=== PATIENT | male | born 1945 | race Caucasian/White ===

== ENCOUNTER 2017-01-14 18:17 | Emergency (ER) | payer MEDICARE, MEDICAID ==
[~2017-01-14] VITALS: Ht 193 cm; Wt 136.1 kg
[~2017-01-14 18:17] MED LIST: BUSP15TA60 PO; CARV25TA55 PO; GABA-339 PO; SPIR25TA89 PO; TRAZ100T2 PO; VENL75TA PO
[2017-01-14] MEDS ORDERED: LORazepam 0.5 MG TAB PO ONE (19:00)
[2017-01-14 19:25] LABS: Basophils # (auto) 0.1 uL; Eosinophils # (auto) 0.3 uL; Eosinophils % (auto) 2.7 % (0.0-7.0); Hematocrit 45.8 % (41.0-53.0); Hemoglobin 15.9 g/dL (13.5-17.5); Lymphocytes # (auto) 2.2 uL; Lymphocytes % (auto) 22.8 % (10.0-50.0); Mean Corpuscular Hemoglobin 34.8 pg (28.0-32.0); Mean Corpuscular Hgb Conc. 34.6 g/dL (32.0-36.0); Mean Corpuscular Volume 100.3 fL (80.0-100.0); Mean Platelet Volume 7.6 fL (6.9-10.8); Monocytes % (auto) 10.9 % (0.0-12.0); Neutrophils % (auto) 62.6 % (37.0-80.0); Nucleated Red Blood Cells % 0.1 %; Platelet Count (auto) 197 10^3/uL (140-450); Red Cell Distribution Width 16.9 % (11.8-14.3); White Blood Cell 9.6 10^3/uL (4.4-10.8)
[2017-01-14 19:44] LABS: Acetaminophen < 2.0 ug/mL (10-30)
[2017-01-14 19:47] LABS: Albumin 3.5 g/dL (3.4-5.0); BUN/Creatinine Ratio 6.2; Bilirubin, Total 0.7 mg/dL (0.2-1.0); Calcium 8.4 mg/dL (8.5-10.1); Potassium 4.1 mmol/L (3.5-5.1); Total Protein 9.1 g/dL (6.4-8.2)
[2017-01-15] MEDS ORDERED: THIAMINE INJ 100 MG, MULTIPLE VITAMIN 10 ML, FOLIC ACID 1 MG, MAGNESIUM SULF SDV 50% 8 ... IV ONE ×5 (00:45)
[2017-01-15] MEDS ORDERED: THIAMINE HCL 100 MG/ML 2ML VIAL ONE (01:21)
[2017-01-15] MEDS ORDERED: LORazepam 2MG/ML-1ML VIAL IV ONE (03:00)
[2017-01-15] MEDS ORDERED: KETOROLAC TROMETH 30 MG/ML 1ML VIAL IV ONE ×2 (03:00→11:30)
[2017-01-15] MEDS ORDERED: ONDANSETRON HCL 4 MG/2 ML VIAL IV ONE (03:00)
[2017-01-15] MEDS ORDERED: OLANZapine 5 MG TAB PO ONE (11:00)
[2017-01-15] MEDS ORDERED: ACETAMINOPHEN 325 MG TAB PO PRN (16:00)
[2017-01-15] MEDS ORDERED: LORazepam 0.5 MG TAB PO PRN (16:00)
[2017-01-15] MEDS ORDERED: ENALAPRIL MALEATE 2.5 MG TAB PO ONE (16:15)
[2017-01-15] MEDS ORDERED: SPIRONOLACTONE 25 MG TAB PO ONE (16:15)
[2017-01-15 17:00] VITALS: BP 136/62
[2017-01-15] MEDS ORDERED: GABAPENTIN 300 MG CAP PO SCH (22:00)
[2017-01-15] MEDS ORDERED: ATORVASTATIN 20 MG TAB PO SCH (22:00)
[2017-01-16] MEDS ORDERED: SPIRONOLACTONE 25 MG TAB PO SCH (10:00)
[2017-01-16] MEDS ORDERED: ENALAPRIL MALEATE 2.5 MG TAB PO SCH (10:00)
[2017-01-16] MEDS ORDERED: OLANZapine 5 MG TAB PO SCH (10:00)
== END 2017-01-15 17:36 | disposition short-term general hospital (02) ==
LOC: ER 18:17 → EDBD 18:17 → ER 01-15 17:36
DX: F32.9 Major depressive disorder, single episode, unspecified (principal); F41.9 Anxiety disorder, unspecified; G92 Toxic encephalopathy; F10.129 Alcohol abuse with intoxication, unspecified; F02.80 Dementia in other diseases classified elsewhere, unspecified severity, without behavioral disturbance, psychotic disturbance, mood disturbance, and anxiety; G30.9 Alzheimer's disease, unspecified; J44.9 Chronic obstructive pulmonary disease, unspecified; I25.10 Atherosclerotic heart disease of native coronary artery without angina pectoris; E11.9 Type 2 diabetes mellitus without complications
CPT/HCPCS: 36415; 80053; 80307; 80320; 80329; 85025; 93005; 96365; 96366; 96375; 96376; 99285; J1885; J2060; J2405; J3411; J3475; J7030

== ENCOUNTER 2019-07-04 12:45 | Inpatient (IN) | payer MEDICARE, MEDICAID ==
[~2019-07-04] VITALS: Ht 193 cm; Wt 123.6 kg
[~2019-07-04 12:45] MED LIST changes: +SPIR25TA8 PO; -SPIR25TA89 PO; -TRAZ100T2 PO; +TRAZ100T3 PO
[2019-07-04] MEDS ORDERED: SODIUM CHLORIDE 0.9% 1,000 ML IV ONE (13:30)
[2019-07-04 13:43] LABS: Basophils # (auto) 0.1 10 ^3/uL (0-0.2); Basophils % (auto) 0.4 % (0.0-2.0); Eosinophils # (auto) 0 10 ^3/uL (0-0.8); Eosinophils % (auto) 0.1 % (0.0-7.0); Hematocrit 42.4 % (41.0-53.0); Hemoglobin 14.3 g/dL (13.5-17.5); Lymphocytes # (auto) 0.9 10 ^3/uL (0.4-5.4); Mean Corpuscular Hemoglobin 31.6 pg (28.0-32.0); Mean Corpuscular Hgb Conc. 33.8 g/dL (32.0-36.0); Mean Corpuscular Volume 93.7 fL (80.0-100.0); Monocytes # (auto) 0.7 10 ^3/uL (0-1.3); Monocytes % (auto) 4.8 % (0.0-12.0); Neutrophils # (auto) 12.5 10 ^3/uL (1.6-8.6); Neutrophils % (auto) 88.7 % (37.0-80.0); Platelet Count (auto) 202 10^3/uL (140-450); Red Blood Cells 4.52 10^6/uL (4.5-5.90); Red Cell Distribution Width 13.6 % (11.8-14.3); White Blood Cell 14.2 10^3/uL (4.4-10.8)
[2019-07-04 14:00] LABS: Albumin 3.7 g/dL (3.4-5.0); Anion Gap 3 (5-15); Blood Urea Nitrogen 21 mg/dL (7-18); Calcium 8.3 mg/dL (8.5-10.1); Carbon Dioxide 20 mmol/L (21-32); Chloride 109 mmol/L (98-107); Glucose 179 mg/dL (74-106); INR 1.08 (0.9-1.15); Partial Thromboplastin Time 26.2 sec (23.64-32.05); Sodium 132 mmol/L (136-145)
[2019-07-04 14:07] LABS: Alanine Aminotransferase 28 U/L (16-61); Alkaline Phosphatase 81 U/L (45-117); Aspartate Aminotransferase 27 U/L (15-37); BUN/Creatinine Ratio 12.7; Bilirubin, Total 0.4 mg/dL (0.2-1.0); GFR African American 53 mL/min; GFR Non-African American 44 mL/min; Total Protein 8.3 g/dL (6.4-8.2)
[2019-07-04 14:16] LABS: Potassium 6.7 mmol/L (3.5-5.1)
[2019-07-04] MEDS ORDERED: SODIUM BICARBONATE 8.4 % INJ 50ML VIAL IV ONE ×2 (14:30→16:15)
[2019-07-04] MEDS ORDERED: CALCIUM CHL 100MG/ML 500 MG in D5W 5% 100 ML IV ONE (14:30)
[2019-07-04] MEDS ORDERED: ALBUTEROL SULF 2.5 MG/0.5ML(0.5%) NEB SOLN NEB ONE (14:30)
[2019-07-04] MEDS ORDERED: GLIP5TAB12 PO (14:35)
[2019-07-04] MEDS ORDERED: TRAZ100T3 PO (14:35)
[2019-07-04] MEDS ORDERED: FUROSEMIDE 20 MG/2 ML VIAL IV ONE (14:45)
[2019-07-04] MEDS ORDERED: SODIUM CHLORIDE 0.9% 500 ML IV ONE ×2 (14:45→16:45)
[2019-07-04] MEDS ORDERED: InsuLIN REG 1unit/0.01ml Soln (100units/ml) IV ONE (16:15)
[2019-07-04] MEDS ORDERED: DEXTROSE (50%) 50ML SYRG IV PRN (16:30)
[2019-07-04] MEDS ORDERED: levoFLOXacin 500MG 100 ML IV ONE (16:30)
[2019-07-04] MEDS ORDERED: ONDANSETRON HCL 4 MG/2 ML VIAL IV PRN (16:30)
[2019-07-04] MEDS ORDERED: NITROGLYCERIN 0.4 MG SL TAB SL PRN (16:30)
[2019-07-04] MEDS ORDERED: ACETAMINOPHEN 500 MG TAB PO PRN (16:30)
[2019-07-04] MEDS ORDERED: traMADol HCL 50 MG TAB PO PRN (16:30)
[2019-07-04] MEDS ORDERED: MORPHINE SULF INJ 2 MG/ML SYRINGE 1ML IV PRN (16:30)
[2019-07-04] MEDS ORDERED: LACTULOSE 20Gm/30ML SOLN PO PRN (16:30)
[2019-07-04] MEDS: InsuLIN REG 1unit/0.01ml Soln (100units/ml) SC SCH ×2 (17:00→23:35)
[2019-07-04] MEDS: ACCU-CHEK COMFORT CURVE STRIP VI SCH ×2 (17:00→23:35)
[2019-07-04 18:03] LABS: Amylase 66 U/L (25-115); CRP High Sensitivity 0.72 mg/dL (< 0.3); Lipase 131 U/L (73-393)
[2019-07-04 18:04] LABS: BUN/Creatinine Ratio 13.2; Calcium 8.1 mg/dL (8.5-10.1); Potassium 4.2 mmol/L (3.5-5.1)
[2019-07-04 19:06] VITALS: BP 96/48
[2019-07-04] MEDS: SODIUM CHLORIDE 0.9% 1,000 ML IV SCH (20:00)
[2019-07-04] MEDS ORDERED: HALOPERIDOL LACTATE 5 MG/ML INJ VIAL IV PRN (22:15)
[2019-07-04] MEDS: metroNIDAZOLE 500MG/100ML 100 ML IV SCH (22:18)
[2019-07-05] MEDS ORDERED: LORazepam 2MG/ML-1ML VIAL IV ONE
[2019-07-05 03:13] LABS: Basophils # (auto) 0 10 ^3/uL (0-0.2); Basophils % (auto) 0.2 % (0.0-2.0); Eosinophils # (auto) 0 10 ^3/uL (0-0.8); Hematocrit 38.2 % (41.0-53.0); Lymphocytes # (auto) 1.1 10 ^3/uL (0.4-5.4); Lymphocytes % (auto) 7.4 % (10.0-50.0); Mean Corpuscular Hemoglobin 31.6 pg (28.0-32.0); Mean Corpuscular Hgb Conc. 34.1 g/dL (32.0-36.0); Mean Corpuscular Volume 92.6 fL (80.0-100.0); Monocytes # (auto) 1.4 10 ^3/uL (0-1.3); Monocytes % (auto) 9.4 % (0.0-12.0); Neutrophils # (auto) 12.8 10 ^3/uL (1.6-8.6); Nucleated Red Blood Cells % 0.1 %; Platelet Count (auto) 183 10^3/uL (140-450); Red Blood Cells 4.13 10^6/uL (4.5-5.90); Red Cell Distribution Width 14.1 % (11.8-14.3); White Blood Cell 15.4 10^3/uL (4.4-10.8)
[2019-07-05 03:33] LABS: Albumin 3.1 g/dL (3.4-5.0); Calcium 7.8 mg/dL (8.5-10.1); Potassium 4.4 mmol/L (3.5-5.1)
[2019-07-05 03:36] LABS: BUN/Creatinine Ratio 14.4; Bilirubin, Total 0.4 mg/dL (0.2-1.0); Total Protein 7.2 g/dL (6.4-8.2)
[2019-07-05] MEDS: metroNIDAZOLE 500MG/100ML 100 ML IV SCH ×3 (05:34→22:00)
[2019-07-05] MEDS: ACCU-CHEK COMFORT CURVE STRIP VI SCH ×4 (05:41→22:00)
[2019-07-05] MEDS: InsuLIN REG 1unit/0.01ml Soln (100units/ml) SC SCH ×4 (05:41→22:00)
[2019-07-05] MEDS: SODIUM CHLORIDE 0.9% 1,000 ML IV SCH ×2 (07:56→19:10)
[2019-07-05 09:10] LABS: Urine Bacteria NONE SEEN /hpf (None Seen); Urine Blood Negative /uL (Negative); Urine Specific Gravity 1.021 (1.001-1.035); Urine WBC 9 /hpf (0 - 3)
[2019-07-05 09:19] LABS: Alcohol, Urine < 3.0 mg/dL (0-5); Amphetamine Screen, Urine NEGATIVE (NEGATIVE); Barbiturate Scree,Urine NEGATIVE (NEGATIVE); Benzodiazephine Screen, Urine NEGATIVE (NEGATIVE); Cannabinoid Screen, Urine NEGATIVE (NEGATIVE); Cocaine Screen, Urine NEGATIVE (NEGATIVE); Opiate Scree,Urine NEGATIVE (NEGATIVE); Phencyclidine Screen, Urine NEGATIVE (NEGATIVE)
[2019-07-05] MEDS ORDERED: levoFLOXacin 500MG 100 ML IV SCH (10:00)
[2019-07-05] MEDS: PANTOPRAZOLE 40 MG TAB PO SCH (10:00)
[2019-07-05] MEDS ORDERED: levoFLOXacin 250MG 50 ML IV SCH (10:00)
[2019-07-05] MEDS: ENOXAPARIN SOD 40 MG/0.4 ML SYRINGE SC SCH (10:28)
[2019-07-05] MEDS ORDERED: HALOPERIDOL LACTATE 5 MG/ML INJ VIAL ONE (13:10)
[2019-07-05] MEDS ORDERED: HALOPERIDOL LACTATE 5 MG/ML INJ VIAL IM ONE ×2 (13:15)
[2019-07-05] MEDS ORDERED: ACETAMINOPHEN 650 MG RECT SUPP PR ONE (13:30)
[2019-07-05] MEDS ORDERED: LORazepam 2MG/ML-1ML VIAL IV PRN (21:30)
[2019-07-06] MEDS: metroNIDAZOLE 500MG/100ML 100 ML IV SCH ×3 (06:00→22:00)
[2019-07-06] MEDS: ACCU-CHEK COMFORT CURVE STRIP VI SCH ×4 (06:46→22:00)
[2019-07-06] MEDS: InsuLIN REG 1unit/0.01ml Soln (100units/ml) SC SCH ×4 (06:46→22:00)
[2019-07-06 06:57] LABS: Basophils # (auto) 0 10 ^3/uL (0-0.2); Basophils % (auto) 0.3 % (0.0-2.0); Eosinophils # (auto) 0 10 ^3/uL (0-0.8); Eosinophils % (auto) 0.1 % (0.0-7.0); Hematocrit 38.5 % (41.0-53.0); Hemoglobin 13.1 g/dL (13.5-17.5); Lymphocytes # (auto) 0.9 10 ^3/uL (0.4-5.4); Lymphocytes % (auto) 6.5 % (10.0-50.0); Mean Corpuscular Hemoglobin 31.6 pg (28.0-32.0); Mean Corpuscular Volume 93.1 fL (80.0-100.0); Monocytes # (auto) 1.5 10 ^3/uL (0-1.3); Monocytes % (auto) 11.4 % (0.0-12.0); Neutrophils # (auto) 10.8 10 ^3/uL (1.6-8.6); Neutrophils % (auto) 81.7 % (37.0-80.0); Platelet Count (auto) 181 10^3/uL (140-450); Red Blood Cells 4.13 10^6/uL (4.5-5.90); Red Cell Distribution Width 14.3 % (11.8-14.3); White Blood Cell 13.2 10^3/uL (4.4-10.8)
[2019-07-06 07:15] LABS: BUN/Creatinine Ratio 19.6; Calcium 7.5 mg/dL (8.5-10.1); Potassium 3.6 mmol/L (3.5-5.1)
[2019-07-06 07:20] VITALS: BP 123/70
[2019-07-06] MEDS ORDERED: SOD CHL 0.45% 1,000 ML IV SCH (08:45)
[2019-07-06] MEDS: cefTRIAXone 1GM/50ML D5W 50 ML IV SCH ×2 (09:43→21:00)
[2019-07-06] MEDS: PANTOPRAZOLE 40 MG TAB PO SCH (09:43)
[2019-07-06] MEDS: ENOXAPARIN SOD 40 MG/0.4 ML SYRINGE SC SCH (09:43)
[2019-07-06] MEDS ORDERED: SOD CHL 0.45% 1,000 ML IV ONE (11:45)
[2019-07-06] MEDS ORDERED: ENOXAPARIN SOD 100 MG/1 ML SYRINGE SC ONE (11:45)
[2019-07-06] MEDS ORDERED: DOXYCYCLINE 100MG/250ML 250 ML IV ONE (12:00)
[2019-07-06] MEDS ORDERED: FUROSEMIDE 20 MG/2 ML VIAL IV ONE (12:00)
[2019-07-06 13:11] VITALS: BP 109/65
[2019-07-06] MEDS ORDERED: THIAMINE 100mg/ml INJ (200mg/2ml VIAL) IV SCH (13:15)
[2019-07-06] MEDS ORDERED: ACETAMINOPHEN 650 MG RECT SUPP PR ONE (13:15)
[2019-07-06] MEDS ORDERED: LORazepam 2MG/ML-1ML VIAL IV ONE (13:15)
[2019-07-06] MEDS: THIAMINE HCL 100 MG TAB PO SCH (14:16)
[2019-07-06 15:59] LABS: Urine Bacteria FEW /hpf (None Seen); Urine Blood 2+ /uL (Negative); Urine Mucus FEW (None Seen); Urine Specific Gravity 1.011 (1.001-1.035); Urine WBC 22 /hpf (0 - 3)
[2019-07-06] MEDS ORDERED: D5W/SOD CHL 0.45% 1,000 ML IV SCH ×2 (19:30)
[2019-07-06 23:00] VITALS: BP 117/57
[2019-07-06 23:15] VITALS: BP 122/54
[2019-07-06 23:30] VITALS: BP 116/44
[2019-07-06 23:45] VITALS: BP 110/51
[2019-07-07] VITALS (31 sets, daily range): BP systolic 104–161; BP diastolic 44–73
[2019-07-07 03:54] LABS: Basophils # (auto) 0 10 ^3/uL (0-0.2); Basophils % (auto) 0.1 % (0.0-2.0); Eosinophils # (auto) 0 10 ^3/uL (0-0.8); Eosinophils % (auto) 0.1 % (0.0-7.0); Hematocrit 38.7 % (41.0-53.0); Hemoglobin 13.2 g/dL (13.5-17.5); Lymphocytes # (auto) 1.2 10 ^3/uL (0.4-5.4); Lymphocytes % (auto) 10.7 % (10.0-50.0); Mean Corpuscular Hemoglobin 31.6 pg (28.0-32.0); Mean Corpuscular Hgb Conc. 34.1 g/dL (32.0-36.0); Mean Corpuscular Volume 92.8 fL (80.0-100.0); Monocytes # (auto) 1.5 10 ^3/uL (0-1.3); Monocytes % (auto) 13.4 % (0.0-12.0); Neutrophils # (auto) 8.6 10 ^3/uL (1.6-8.6); Neutrophils % (auto) 75.7 % (37.0-80.0); Platelet Count (auto) 186 10^3/uL (140-450); Red Blood Cells 4.17 10^6/uL (4.5-5.90); Red Cell Distribution Width 14.4 % (11.8-14.3); White Blood Cell 11.3 10^3/uL (4.4-10.8)
[2019-07-07 04:14] LABS: Calcium 7.7 mg/dL (8.5-10.1)
[2019-07-07 04:17] LABS: BUN/Creatinine Ratio 20.6
[2019-07-07] MEDS: D5W 5% 1,000 ML IV SCH (08:49)
[2019-07-07] MEDS: POTASSIUM CHL 20MEQ/100ML 100 ML IV SCH ×3 (08:49→14:12)
[2019-07-07] MEDS: PANTOPRAZOLE 40 MG TAB PO SCH (09:19)
[2019-07-07] MEDS: cefTRIAXone 1GM/50ML D5W 50 ML IV SCH ×2 (09:19→22:40)
[2019-07-07] MEDS: THIAMINE HCL 100 MG TAB PO SCH (09:19)
[2019-07-07] MEDS ORDERED: THIAMINE 100mg/ml INJ (200mg/2ml VIAL) IV SCH (10:00)
[2019-07-07] MEDS: ENOXAPARIN SOD 40 MG/0.4 ML SYRINGE SC SCH (10:49)
[2019-07-07] MEDS: InsuLIN REG 1unit/0.01ml Soln (100units/ml) SC SCH ×3 (11:30→22:00)
[2019-07-07] MEDS: DOXYCYCLINE 100MG/250ML 250 ML IV SCH ×3 (12:02→23:28)
[2019-07-07] MEDS: ACCU-CHEK COMFORT CURVE STRIP VI SCH ×3 (14:10→22:40)
[2019-07-07] MEDS: metroNIDAZOLE 500MG/100ML 100 ML IV SCH ×2 (15:00→22:40)
[2019-07-07 16:52] LABS: BUN/Creatinine Ratio 21.1; Calcium 7.9 mg/dL (8.5-10.1); Potassium 3.4 mmol/L (3.5-5.1)
[2019-07-08] VITALS: BP 146/69
[2019-07-08] MEDS: LORazepam 2MG/ML-1ML VIAL IV PRN ×2 (00:27→09:45)
[2019-07-08] MEDS: ACETAMINOPHEN 650 MG RECT SUPP PR PRN (00:27)
[2019-07-08] MEDS: D5W 5% 1,000 ML IV SCH ×2 (03:30→12:36)
[2019-07-08 04:00] VITALS: BP 130/64
[2019-07-08] MEDS: metroNIDAZOLE 500MG/100ML 100 ML IV SCH ×3 (06:19→21:51)
[2019-07-08] MEDS: ACCU-CHEK COMFORT CURVE STRIP VI SCH ×4 (06:19→21:51)
[2019-07-08] MEDS: InsuLIN REG 1unit/0.01ml Soln (100units/ml) SC SCH ×4 (06:19→21:51)
[2019-07-08 06:49] LABS: Basophils # (auto) 0 10 ^3/uL (0-0.2); Basophils % (auto) 0.2 % (0.0-2.0); Eosinophils # (auto) 0.1 10 ^3/uL (0-0.8); Eosinophils % (auto) 0.5 % (0.0-7.0); Hemoglobin 14.1 g/dL (13.5-17.5); Lymphocytes # (auto) 1.2 10 ^3/uL (0.4-5.4); Lymphocytes % (auto) 11.3 % (10.0-50.0); Mean Corpuscular Hemoglobin 31.9 pg (28.0-32.0); Mean Corpuscular Hgb Conc. 32.9 g/dL (32.0-36.0); Mean Corpuscular Volume 97.2 fL (80.0-100.0); Monocytes # (auto) 1.5 10 ^3/uL (0-1.3); Monocytes % (auto) 14.2 % (0.0-12.0); Neutrophils # (auto) 7.6 10 ^3/uL (1.6-8.6); Neutrophils % (auto) 73.8 % (37.0-80.0); Nucleated Red Blood Cells % 0.1 %; Platelet Count (auto) 165 10^3/uL (140-450); Red Blood Cells 4.42 10^6/uL (4.5-5.90); Red Cell Distribution Width 15.1 % (11.8-14.3); White Blood Cell 10.2 10^3/uL (4.4-10.8)
[2019-07-08 07:00] LABS: BUN/Creatinine Ratio 19.4; Calcium 8.3 mg/dL (8.5-10.1); Potassium 3.5 mmol/L (3.5-5.1)
[2019-07-08] MEDS: ALBUTEROL SULF 2.5 MG/0.5ML(0.5%) NEB SOLN NEB PRN ×2 (07:36→15:04)
[2019-07-08 08:00] VITALS: BP 149/68
[2019-07-08] MEDS: cefTRIAXone 1GM/50ML D5W 50 ML IV SCH ×2 (08:30→21:23)
[2019-07-08] MEDS: THIAMINE HCL 100 MG TAB PO SCH (09:55)
[2019-07-08] MEDS: PANTOPRAZOLE 40 MG TAB PO SCH (09:55)
[2019-07-08] MEDS: ENOXAPARIN SOD 40 MG/0.4 ML SYRINGE SC SCH (10:00)
[2019-07-08 12:00] VITALS: BP 137/67
[2019-07-08] MEDS ORDERED: methylPREDNISolone SOD SUCC 40 MG/ML VL IV ONE (12:30)
[2019-07-08] MEDS: DOXYCYCLINE 100MG/250ML 250 ML IV SCH (12:36)
[2019-07-08] MEDS ORDERED: PANTOPRAZOLE 40 MG/10 ML VIAL INJ IV ONE (12:45)
[2019-07-08] MEDS: LORazepam 2MG/ML-1ML VIAL IV SCH ×2 (14:09→21:50)
[2019-07-08 16:00] VITALS: BP 143/74
[2019-07-08] MEDS ORDERED: FUROSEMIDE 20 MG/2 ML VIAL IV ONE (18:15)
[2019-07-08 20:00] VITALS: BP 127/73
[2019-07-08] MEDS: methylPREDNISolone SOD SUCC 40 MG/ML VL IV SCH (21:51)
[2019-07-08] MEDS: BACITRACIN TOP OINT 1 UD PKG TOP SCH (21:52)
[2019-07-08] MEDS ORDERED: LORazepam 2MG/ML-1ML VIAL IV SCH (22:00)
[2019-07-09] VITALS: BP 163/77
[2019-07-09] MEDS: HALOPERIDOL LACTATE 5 MG/ML INJ VIAL IM PRN ×2 (01:00→09:53)
[2019-07-09] MEDS: DOXYCYCLINE 100MG/250ML 250 ML IV SCH ×3 (01:39→23:52)
[2019-07-09] MEDS: D5W 5% 1,000 ML IV SCH ×2 (01:39→16:45)
[2019-07-09 03:38] LABS: Basophils # (auto) 0 10 ^3/uL (0-0.2); Basophils % (auto) 0.2 % (0.0-2.0); Eosinophils # (auto) 0 10 ^3/uL (0-0.8); Hematocrit 40.4 % (41.0-53.0); Hemoglobin 13.7 g/dL (13.5-17.5); Lymphocytes # (auto) 0.4 10 ^3/uL (0.4-5.4); Lymphocytes % (auto) 4.7 % (10.0-50.0); Mean Corpuscular Hemoglobin 31.5 pg (28.0-32.0); Mean Corpuscular Volume 92.8 fL (80.0-100.0); Monocytes # (auto) 0.2 10 ^3/uL (0-1.3); Monocytes % (auto) 2.6 % (0.0-12.0); Neutrophils # (auto) 8.7 10 ^3/uL (1.6-8.6); Neutrophils % (auto) 92.5 % (37.0-80.0); Platelet Count (auto) 177 10^3/uL (140-450); Red Blood Cells 4.35 10^6/uL (4.5-5.90); Red Cell Distribution Width 14.2 % (11.8-14.3); White Blood Cell 9.4 10^3/uL (4.4-10.8)
[2019-07-09 03:48] VITALS: BP 153/70
[2019-07-09 03:59] LABS: Calcium 8.1 mg/dL (8.5-10.1); Potassium 3.3 mmol/L (3.5-5.1)
[2019-07-09] MEDS: metroNIDAZOLE 500MG/100ML 100 ML IV SCH ×3 (05:25→22:46)
[2019-07-09] MEDS: ACCU-CHEK COMFORT CURVE STRIP VI SCH ×4 (05:26→23:52)
[2019-07-09] MEDS: InsuLIN REG 1unit/0.01ml Soln (100units/ml) SC SCH ×4 (05:28→23:59)
[2019-07-09] MEDS: LORazepam 2MG/ML-1ML VIAL IV SCH ×3 (05:36→21:51)
[2019-07-09] MEDS ORDERED: FUROSEMIDE 20 MG/2 ML VIAL IV SCH (06:00)
[2019-07-09] MEDS: cefTRIAXone 1GM/50ML D5W 50 ML IV SCH ×2 (09:52→21:51)
[2019-07-09] MEDS: METOPROLOL TARTRATE 25 MG TAB PO SCH ×2 (10:00→22:05)
[2019-07-09] MEDS ORDERED: POTASSIUM CHLORIDE 20 MEQ, LIDOCAINE 1% (LOCAL ANESTH.) 2 ML in SODIUM CHL 0.9% 100 ML IV ONE (10:00)
[2019-07-09] MEDS: THIAMINE HCL 100 MG TAB PO SCH (10:00)
[2019-07-09] MEDS: ENOXAPARIN SOD 40 MG/0.4 ML SYRINGE SC SCH (10:30)
[2019-07-09] MEDS: BACITRACIN TOP OINT 1 UD PKG TOP SCH ×2 (10:30→22:00)
[2019-07-09] MEDS: PANTOPRAZOLE 40 MG/10 ML VIAL INJ IV SCH (10:30)
[2019-07-09] MEDS: methylPREDNISolone SOD SUCC 40 MG/ML VL IV SCH ×2 (10:30→21:51)
[2019-07-09 11:40] VITALS: BP 160/63
[2019-07-09 16:05] VITALS: BP 119/78
[2019-07-09] MEDS: ACETAMINOPHEN 650 MG RECT SUPP PR PRN (16:56)
[2019-07-09 22:00] VITALS: BP 150/81
[2019-07-10] MEDS: D5W 5% 1,000 ML IV SCH ×3 (02:45→22:53)
[2019-07-10 05:00] VITALS: BP 157/79
[2019-07-10 05:19] LABS: Basophils # (auto) 0.1 10 ^3/uL (0-0.2); Basophils % (auto) 0.6 % (0.0-2.0); Eosinophils # (auto) 0 10 ^3/uL (0-0.8); Hematocrit 44.7 % (41.0-53.0); Hemoglobin 15.1 g/dL (13.5-17.5); Lymphocytes # (auto) 0.8 10 ^3/uL (0.4-5.4); Lymphocytes % (auto) 4.8 % (10.0-50.0); Mean Corpuscular Hemoglobin 31.3 pg (28.0-32.0); Mean Corpuscular Hgb Conc. 33.9 g/dL (32.0-36.0); Mean Corpuscular Volume 92.5 fL (80.0-100.0); Monocytes # (auto) 0.9 10 ^3/uL (0-1.3); Monocytes % (auto) 4.9 % (0.0-12.0); Neutrophils # (auto) 15.7 10 ^3/uL (1.6-8.6); Neutrophils % (auto) 89.7 % (37.0-80.0); Nucleated Red Blood Cells % 0.2 %; Platelet Count (auto) 165 10^3/uL (140-450); Red Blood Cells 4.83 10^6/uL (4.5-5.90); White Blood Cell 17.5 10^3/uL (4.4-10.8)
[2019-07-10 05:36] LABS: Potassium 3.5 mmol/L (3.5-5.1)
[2019-07-10 05:41] LABS: BUN/Creatinine Ratio 26.7; Calcium 8.4 mg/dL (8.5-10.1)
[2019-07-10] MEDS: LORazepam 2MG/ML-1ML VIAL IV SCH ×3 (06:00→22:06)
[2019-07-10] MEDS: metroNIDAZOLE 500MG/100ML 100 ML IV SCH ×3 (06:19→22:06)
[2019-07-10] MEDS: InsuLIN REG 1unit/0.01ml Soln (100units/ml) SC SCH ×4 (07:12→22:08)
[2019-07-10] MEDS: ACCU-CHEK COMFORT CURVE STRIP VI SCH ×4 (07:12→22:09)
[2019-07-10 08:44] VITALS: BP 154/90
[2019-07-10] MEDS: BACITRACIN TOP OINT 1 UD PKG TOP SCH ×2 (11:16→22:09)
[2019-07-10] MEDS: ENOXAPARIN SOD 40 MG/0.4 ML SYRINGE SC SCH (11:18)
[2019-07-10] MEDS: THIAMINE HCL 100 MG TAB PO SCH (11:19)
[2019-07-10] MEDS: METOPROLOL TARTRATE 25 MG TAB PO SCH ×2 (11:20→22:08)
[2019-07-10] MEDS: cefTRIAXone 1GM/50ML D5W 50 ML IV SCH ×2 (11:22→20:44)
[2019-07-10] MEDS: PANTOPRAZOLE 40 MG/10 ML VIAL INJ IV SCH (12:02)
[2019-07-10] MEDS: methylPREDNISolone SOD SUCC 40 MG/ML VL IV SCH ×2 (12:03→22:06)
[2019-07-10] MEDS: DOXYCYCLINE 100MG/250ML 250 ML IV SCH (12:03)
[2019-07-10 13:00] VITALS: BP 137/78
[2019-07-10 17:27] VITALS: BP 142/87
[2019-07-10 19:49] VITALS: BP 142/87
[2019-07-10 21:55] VITALS: BP 132/73
[2019-07-11] MEDS: DOXYCYCLINE 100MG/250ML 250 ML IV SCH ×2 (00:13→12:00)
[2019-07-11 04:50] VITALS: BP 117/81
[2019-07-11] MEDS: LORazepam 2MG/ML-1ML VIAL IV SCH ×3 (05:33→22:10)
[2019-07-11] MEDS: metroNIDAZOLE 500MG/100ML 100 ML IV SCH ×3 (05:34→22:11)
[2019-07-11] MEDS: ACCU-CHEK COMFORT CURVE STRIP VI SCH ×4 (05:58→22:12)
[2019-07-11] MEDS: InsuLIN REG 1unit/0.01ml Soln (100units/ml) SC SCH ×4 (06:01→22:12)
[2019-07-11 07:33] LABS: Basophils # (auto) 0 10 ^3/uL (0-0.2); Basophils % (auto) 0.1 % (0.0-2.0); Eosinophils # (auto) 0 10 ^3/uL (0-0.8); Hematocrit 41.7 % (41.0-53.0); Hemoglobin 13.7 g/dL (13.5-17.5); Lymphocytes # (auto) 0.9 10 ^3/uL (0.4-5.4); Lymphocytes % (auto) 5.5 % (10.0-50.0); Mean Corpuscular Hemoglobin 31.5 pg (28.0-32.0); Mean Corpuscular Hgb Conc. 32.9 g/dL (32.0-36.0); Mean Corpuscular Volume 95.9 fL (80.0-100.0); Monocytes % (auto) 6.4 % (0.0-12.0); Neutrophils # (auto) 13.6 10 ^3/uL (1.6-8.6); Nucleated Red Blood Cells % 0.1 %; Platelet Count (auto) 161 10^3/uL (140-450); Red Blood Cells 4.35 10^6/uL (4.5-5.90); Red Cell Distribution Width 14.8 % (11.8-14.3); White Blood Cell 15.5 10^3/uL (4.4-10.8)
[2019-07-11 07:43] LABS: BUN/Creatinine Ratio 30.8; Calcium 8.1 mg/dL (8.5-10.1); Potassium 3.7 mmol/L (3.5-5.1)
[2019-07-11 09:00] VITALS: BP 137/68
[2019-07-11] MEDS: BACITRACIN TOP OINT 1 UD PKG TOP SCH ×2 (09:47→22:11)
[2019-07-11] MEDS: cefTRIAXone 1GM/50ML D5W 50 ML IV SCH ×2 (09:47→20:53)
[2019-07-11] MEDS: THIAMINE HCL 100 MG TAB PO SCH (09:47)
[2019-07-11] MEDS: methylPREDNISolone SOD SUCC 40 MG/ML VL IV SCH ×2 (09:48→22:11)
[2019-07-11] MEDS: ENOXAPARIN SOD 40 MG/0.4 ML SYRINGE SC SCH (09:48)
[2019-07-11] MEDS: METOPROLOL TARTRATE 25 MG TAB PO SCH ×2 (09:48→22:11)
[2019-07-11] MEDS: D5W 5% 1,000 ML IV SCH ×2 (09:48→17:48)
[2019-07-11] MEDS: PANTOPRAZOLE 40 MG/10 ML VIAL INJ IV SCH (09:48)
[2019-07-11 13:00] VITALS: BP 143/78
[2019-07-11 21:12] VITALS: BP 119/74
[2019-07-12] MEDS: DOXYCYCLINE 100MG/250ML 250 ML IV SCH ×2 (00:40→11:46)
[2019-07-12 05:24] VITALS: BP 142/73
[2019-07-12] MEDS: D5W 5% 1,000 ML IV SCH ×2 (05:40→14:45)
[2019-07-12] MEDS: LORazepam 2MG/ML-1ML VIAL IV SCH ×3 (05:40→21:49)
[2019-07-12] MEDS: metroNIDAZOLE 500MG/100ML 100 ML IV SCH ×3 (05:40→21:48)
[2019-07-12] MEDS: ACCU-CHEK COMFORT CURVE STRIP VI SCH ×4 (06:01→21:51)
[2019-07-12] MEDS: InsuLIN REG 1unit/0.01ml Soln (100units/ml) SC SCH ×4 (06:03→22:09)
[2019-07-12 08:30] VITALS: BP 149/72
[2019-07-12] MEDS: ENOXAPARIN SOD 40 MG/0.4 ML SYRINGE SC SCH (10:23)
[2019-07-12] MEDS: PANTOPRAZOLE 40 MG/10 ML VIAL INJ IV SCH (10:23)
[2019-07-12] MEDS: methylPREDNISolone SOD SUCC 40 MG/ML VL IV SCH (10:23)
[2019-07-12] MEDS: cefTRIAXone 1GM/50ML D5W 50 ML IV SCH ×2 (10:24→20:56)
[2019-07-12] MEDS: METOPROLOL TARTRATE 25 MG TAB PO SCH ×2 (10:24→21:49)
[2019-07-12] MEDS: THIAMINE HCL 100 MG TAB PO SCH (10:24)
[2019-07-12] MEDS: BACITRACIN TOP OINT 1 UD PKG TOP SCH ×2 (10:25→21:50)
[2019-07-12 13:30] VITALS: BP 135/68
[2019-07-12 16:57] VITALS: BP 165/86
[2019-07-12 17:18] VITALS: BP 165/86
[2019-07-12] MEDS: DOXYCYCLINE 100 MG TAB/CAP PO SCH (21:50)
[2019-07-12 22:44] VITALS: BP 139/74
[2019-07-13] MEDS: D5W 5% 1,000 ML IV SCH ×2 (00:45→11:54)
[2019-07-13 04:44] VITALS: BP 148/93
[2019-07-13] MEDS: LORazepam 2MG/ML-1ML VIAL IV SCH ×3 (06:00→22:00)
[2019-07-13] MEDS: metroNIDAZOLE 500MG/100ML 100 ML IV SCH (06:11)
[2019-07-13] MEDS: ACCU-CHEK COMFORT CURVE STRIP VI SCH ×4 (06:12→22:35)
[2019-07-13] MEDS: InsuLIN REG 1unit/0.01ml Soln (100units/ml) SC SCH ×4 (06:12→22:00)
[2019-07-13] MEDS: HALOPERIDOL LACTATE 5 MG/ML INJ VIAL IM PRN (08:29)
[2019-07-13 09:00] VITALS: BP 112/59
[2019-07-13] MEDS: cefTRIAXone 1GM/50ML D5W 50 ML IV SCH ×2 (09:00→22:33)
[2019-07-13] MEDS: PANTOPRAZOLE 40 MG/10 ML VIAL INJ IV SCH (10:00)
[2019-07-13] MEDS: ENOXAPARIN SOD 40 MG/0.4 ML SYRINGE SC SCH (10:15)
[2019-07-13] MEDS: BACITRACIN TOP OINT 1 UD PKG TOP SCH ×2 (10:16→22:34)
[2019-07-13] MEDS: METOPROLOL TARTRATE 25 MG TAB PO SCH ×2 (10:16→22:33)
[2019-07-13] MEDS: DOXYCYCLINE 100 MG TAB/CAP PO SCH ×2 (10:16→22:34)
[2019-07-13] MEDS: THIAMINE HCL 100 MG TAB PO SCH (10:16)
[2019-07-13] MEDS ORDERED: IOHEXOL 350 MG/ML 100ML IJ ONE (12:31)
[2019-07-13 13:00] VITALS: BP 114/63
[2019-07-13 15:09] LABS: Basophils # (auto) 0 10 ^3/uL (0-0.2); Basophils % (auto) 0.3 % (0.0-2.0); Eosinophils # (auto) 0.1 10 ^3/uL (0-0.8); Eosinophils % (auto) 1.2 % (0.0-7.0); Hematocrit 42.1 % (41.0-53.0); Hemoglobin 14.1 g/dL (13.5-17.5); Lymphocytes # (auto) 1.2 10 ^3/uL (0.4-5.4); Lymphocytes % (auto) 11.6 % (10.0-50.0); Mean Corpuscular Hemoglobin 31.6 pg (28.0-32.0); Mean Corpuscular Hgb Conc. 33.6 g/dL (32.0-36.0); Mean Corpuscular Volume 93.9 fL (80.0-100.0); Monocytes # (auto) 1.3 10 ^3/uL (0-1.3); Monocytes % (auto) 12.3 % (0.0-12.0); Neutrophils # (auto) 7.6 10 ^3/uL (1.6-8.6); Neutrophils % (auto) 74.6 % (37.0-80.0); Platelet Count (auto) 146 10^3/uL (140-450); Red Blood Cells 4.48 10^6/uL (4.5-5.90); Red Cell Distribution Width 14.1 % (11.8-14.3); White Blood Cell 10.2 10^3/uL (4.4-10.8)
[2019-07-13 15:25] LABS: Albumin 2.5 g/dL (3.4-5.0); BUN/Creatinine Ratio 27.7; Calcium 7.8 mg/dL (8.5-10.1); Potassium 3.5 mmol/L (3.5-5.1)
[2019-07-13 15:28] LABS: Bilirubin, Total 0.6 mg/dL (0.2-1.0); Total Protein 6.2 g/dL (6.4-8.2)
[2019-07-13 17:00] VITALS: BP 149/78
[2019-07-13 22:00] VITALS: BP 126/70
[2019-07-14 01:23] VITALS: BP 126/70
[2019-07-14 04:53] VITALS: BP 144/77
[2019-07-14] MEDS: LORazepam 2MG/ML-1ML VIAL IV SCH ×3 (06:00→23:20)
[2019-07-14] MEDS: ACCU-CHEK COMFORT CURVE STRIP VI SCH ×4 (06:44→23:28)
[2019-07-14] MEDS: InsuLIN REG 1unit/0.01ml Soln (100units/ml) SC SCH ×4 (06:45→23:33)
[2019-07-14] MEDS: cefTRIAXone 1GM/50ML D5W 50 ML IV SCH (08:45)
[2019-07-14] MEDS: PANTOPRAZOLE 40 MG/10 ML VIAL INJ IV SCH (10:02)
[2019-07-14] MEDS: THIAMINE HCL 100 MG TAB PO SCH (10:02)
[2019-07-14] MEDS: METOPROLOL TARTRATE 25 MG TAB PO SCH ×2 (10:03→23:22)
[2019-07-14] MEDS: ENOXAPARIN SOD 40 MG/0.4 ML SYRINGE SC SCH (10:04)
[2019-07-14] MEDS: DOXYCYCLINE 100 MG TAB/CAP PO SCH ×2 (10:04→23:19)
[2019-07-14] MEDS: BACITRACIN TOP OINT 1 UD PKG TOP SCH ×2 (10:05→23:34)
[2019-07-14] MEDS ORDERED: MULTIPLE VITAMIN TAB PO ONE (18:15)
[2019-07-14] MEDS ORDERED: PIPERACILLIN-TAZO 4.5GM 100 ML IV ONE (18:15)
[2019-07-14] MEDS ORDERED: SERTRALINE HCL 50 MG TAB PO ONE (18:15)
[2019-07-14] MEDS ORDERED: FOLIC ACID 1 MG TAB PO ONE (18:15)
[2019-07-14 22:00] VITALS: BP 128/71
[2019-07-15 05:00] VITALS: BP 120/70
[2019-07-15 05:47] LABS: Basophils # (auto) 0 10 ^3/uL (0-0.2); Basophils % (auto) 0.3 % (0.0-2.0); Eosinophils # (auto) 0.3 10 ^3/uL (0-0.8); Eosinophils % (auto) 2.9 % (0.0-7.0); Hemoglobin 13.5 g/dL (13.5-17.5); Lymphocytes # (auto) 1.1 10 ^3/uL (0.4-5.4); Lymphocytes % (auto) 10.3 % (10.0-50.0); Mean Corpuscular Hemoglobin 32.3 pg (28.0-32.0); Mean Corpuscular Hgb Conc. 34.6 g/dL (32.0-36.0); Mean Corpuscular Volume 93.2 fL (80.0-100.0); Monocytes # (auto) 1.1 10 ^3/uL (0-1.3); Monocytes % (auto) 10.1 % (0.0-12.0); Neutrophils # (auto) 8.4 10 ^3/uL (1.6-8.6); Neutrophils % (auto) 76.4 % (37.0-80.0); Nucleated Red Blood Cells % 0.1 %; Platelet Count (auto) 120 10^3/uL (140-450); Red Blood Cells 4.19 10^6/uL (4.5-5.90); Red Cell Distribution Width 14.2 % (11.8-14.3)
[2019-07-15 06:01] LABS: BUN/Creatinine Ratio 17.7; Calcium 7.9 mg/dL (8.5-10.1); Potassium 3.3 mmol/L (3.5-5.1)
[2019-07-15] MEDS: PIPERACILLIN-TAZO 4.5GM 100 ML IV SCH ×2 (06:04→14:30)
[2019-07-15] MEDS: LORazepam 2MG/ML-1ML VIAL IV SCH ×3 (06:05→23:02)
[2019-07-15] MEDS: ACCU-CHEK COMFORT CURVE STRIP VI SCH ×4 (06:16→22:00)
[2019-07-15] MEDS: InsuLIN REG 1unit/0.01ml Soln (100units/ml) SC SCH ×4 (06:17→23:28)
[2019-07-15 09:00] VITALS: BP 130/63
[2019-07-15] MEDS: FOLIC ACID 1 MG TAB PO SCH (10:05)
[2019-07-15] MEDS: DOXYCYCLINE 100 MG TAB/CAP PO SCH ×2 (10:05→23:07)
[2019-07-15] MEDS: PANTOPRAZOLE 40 MG/10 ML VIAL INJ IV SCH (10:05)
[2019-07-15] MEDS: METOPROLOL TARTRATE 25 MG TAB PO SCH ×2 (10:05→23:07)
[2019-07-15] MEDS: THIAMINE HCL 100 MG TAB PO SCH (10:05)
[2019-07-15] MEDS: BACITRACIN TOP OINT 1 UD PKG TOP SCH ×2 (10:06→23:07)
[2019-07-15] MEDS: SERTRALINE HCL 50 MG TAB PO SCH (10:06)
[2019-07-15] MEDS: MULTIPLE VITAMIN TAB PO SCH (10:06)
[2019-07-15] MEDS: ENOXAPARIN SOD 40 MG/0.4 ML SYRINGE SC SCH (10:06)
[2019-07-15 13:00] VITALS: BP 141/68
[2019-07-15] MEDS ORDERED: POTASSIUM CHL 20 Meq TABLET PO ONE (13:30)
[2019-07-15 17:00] VITALS: BP 148/70
[2019-07-15] MEDS ORDERED: POTASSIUM CHL 20MEQ/100ML 100 ML IV ONE (18:30)
[2019-07-15 21:00] VITALS: BP 145/87
[2019-07-16] MEDS: PIPERACILLIN-TAZO 4.5GM 100 ML IV SCH ×3 (00:59→14:00)
[2019-07-16 05:00] VITALS: BP 131/75
[2019-07-16 05:58] LABS: Basophils # (auto) 0 10 ^3/uL (0-0.2); Basophils % (auto) 0.5 % (0.0-2.0); Eosinophils # (auto) 0.3 10 ^3/uL (0-0.8); Eosinophils % (auto) 2.7 % (0.0-7.0); Hematocrit 37.4 % (41.0-53.0); Lymphocytes # (auto) 1.4 10 ^3/uL (0.4-5.4); Lymphocytes % (auto) 14.4 % (10.0-50.0); Mean Corpuscular Hemoglobin 32.6 pg (28.0-32.0); Mean Corpuscular Hgb Conc. 34.8 g/dL (32.0-36.0); Mean Corpuscular Volume 93.7 fL (80.0-100.0); Monocytes % (auto) 10.2 % (0.0-12.0); Neutrophils # (auto) 7.2 10 ^3/uL (1.6-8.6); Neutrophils % (auto) 72.2 % (37.0-80.0); Nucleated Red Blood Cells % 0.1 %; Platelet Count (auto) 119 10^3/uL (140-450); Red Blood Cells 3.99 10^6/uL (4.5-5.90); Red Cell Distribution Width 14.1 % (11.8-14.3); White Blood Cell 9.9 10^3/uL (4.4-10.8)
[2019-07-16 06:12] LABS: BUN/Creatinine Ratio 16.4; Calcium 7.7 mg/dL (8.5-10.1); Potassium 3.7 mmol/L (3.5-5.1)
[2019-07-16] MEDS: LORazepam 2MG/ML-1ML VIAL IV SCH ×2 (06:41→14:00)
[2019-07-16] MEDS: ACCU-CHEK COMFORT CURVE STRIP VI SCH ×3 (06:42→16:38)
[2019-07-16] MEDS: InsuLIN REG 1unit/0.01ml Soln (100units/ml) SC SCH ×3 (06:43→16:39)
[2019-07-16 08:52] VITALS: BP 117/89
[2019-07-16] MEDS ORDERED: LORazepam 2MG/ML-1ML VIAL IM ONE (09:50)
[2019-07-16] MEDS: ENOXAPARIN SOD 40 MG/0.4 ML SYRINGE SC SCH (10:11)
[2019-07-16] MEDS: DOXYCYCLINE 100 MG TAB/CAP PO SCH (10:11)
[2019-07-16] MEDS: SERTRALINE HCL 50 MG TAB PO SCH (10:11)
[2019-07-16] MEDS: THIAMINE HCL 100 MG TAB PO SCH (10:11)
[2019-07-16] MEDS: PANTOPRAZOLE 40 MG/10 ML VIAL INJ IV SCH (10:11)
[2019-07-16] MEDS: MULTIPLE VITAMIN TAB PO SCH (10:11)
[2019-07-16] MEDS: FOLIC ACID 1 MG TAB PO SCH (10:11)
[2019-07-16] MEDS: METOPROLOL TARTRATE 25 MG TAB PO SCH (10:12)
[2019-07-16] MEDS: BACITRACIN TOP OINT 1 UD PKG TOP SCH (10:12)
[2019-07-16 13:00] VITALS: BP 159/81
[2019-07-16 15:26] VITALS: BP 159/81
[2019-07-16 17:00] VITALS: BP 135/65
== END 2019-07-16 18:45 | disposition home or self-care (01) | DRG 917 ==
LOC: ER 12:45 → EDBD 12:45 → TELE 12:46 → TELE-CENTR 07-05 20:26 → DOU IN ICU 07-06 22:04 → TELE-WESTW 07-09 17:22
PROVIDERS: ADMIT Internal Medicine; ATTEND Internal Medicine Nephrology
DX: T43.211A Poisoning by selective serotonin and norepinephrine reuptake inhibitors, accidental (unintentional), initial encounter (principal); A41.9 Sepsis, unspecified organism; N17.0 Acute kidney failure with tubular necrosis; J96.01 Acute respiratory failure with hypoxia; I50.33 Acute on chronic diastolic (congestive) heart failure; J15.6 Pneumonia due to other Gram-negative bacteria; G92 Toxic encephalopathy; J44.1 Chronic obstructive pulmonary disease with (acute) exacerbation; E87.1 Hypo-osmolality and hyponatremia; E87.0 Hyperosmolality and hypernatremia; I13.0 Hypertensive heart and chronic kidney disease with heart failure and stage 1 through stage 4 chronic kidney disease, or unspecified chronic kidney disease; E87.4 Mixed disorder of acid-base balance; F10.239 Alcohol dependence with withdrawal, unspecified; J44.0 Chronic obstructive pulmonary disease with (acute) lower respiratory infection; K52.9 Noninfective gastroenteritis and colitis, unspecified; E87.5 Hyperkalemia; G30.9 Alzheimer's disease, unspecified; F02.80 Dementia in other diseases classified elsewhere, unspecified severity, without behavioral disturbance, psychotic disturbance, mood disturbance, and anxiety; E11.21 Type 2 diabetes mellitus with diabetic nephropathy; E11.65 Type 2 diabetes mellitus with hyperglycemia; E86.1 Hypovolemia; E87.6 Hypokalemia; I27.20 Pulmonary hypertension, unspecified; E86.0 Dehydration; E66.9 Obesity, unspecified; N18.9 Chronic kidney disease, unspecified; E11.22 Type 2 diabetes mellitus with diabetic chronic kidney disease; F04 Amnestic disorder due to known physiological condition; M48.00 Spinal stenosis, site unspecified; F29 Unspecified psychosis not due to a substance or known physiological condition; E11.42 Type 2 diabetes mellitus with diabetic polyneuropathy; I25.10 Atherosclerotic heart disease of native coronary artery without angina pectoris; F41.9 Anxiety disorder, unspecified; F32.9 Major depressive disorder, single episode, unspecified; E66.3 Overweight; Z95.810 Presence of automatic (implantable) cardiac defibrillator; Z79.899 Other long term (current) drug therapy; Z79.84 Long term (current) use of oral hypoglycemic drugs; Z85.118 Personal history of other malignant neoplasm of bronchus and lung; Z82.0 Family history of epilepsy and other diseases of the nervous system; Z68.33 Body mass index [BMI] 33.0-33.9, adult
CPT/HCPCS: 36415; 36600; 70450; 71045; 71275; 72125; 76775; 80048; 80053; 80307; 81001; 82140; 82150; 82550; 82805; 82962; 83036; 83605; 83615; 83690; 83735; 83880; 83930; 84443; 84484; 85025; 85379; 85610; 85652; 85730; 86141; 87040; 87070; 87086; 87804; 87880; 92507; 92610; 93005; 93306; 93970; 94640; 95819; 96361; 96365; 96375; C9113; G0378; J0696; J1815; J1956; J2001; J2543; J3480; J3490; J7060